=== PATIENT | male | born 1945 | race Caucasian/White ===

== ENCOUNTER → 2018-02-25 | Outpatient (CLI) | payer MEDICARE, OTHER ==
[~2018-02-25] MED LIST: IOHEXOL 240 MG/ML 50ML VIAL. ONE; IOHEXOL 300 MG/ML 75 ML VIAL. IV ONE
[2018-02-25 15:48] LABS: BASO # 0.1 x10^3/uL (0.0-0.2); BASO % 1 % (0-3); EOS # 0.3 x10^3/uL (0.0-0.7); EOS % 3 % (0-3); HEMATOCRIT 44.2 % (39.0-53.0); HEMOGLOBIN 14.3 g/dL (13.0-17.5); LYMPH # 2.8 x10^3/uL (1.0-4.8); LYMPH % 33 % (24-48); MEAN CORPUSCULAR HEMOGLOBIN 25 pg (25-35); MEAN CORPUSCULAR HGB CONC 32 g/dL (31-37); MEAN CORPUSCULAR VOLUME 78 fL (79-100); MONO # 0.6 x10^3/uL (0.0-1.1); MONO % 7 % (0-9); NEUT # 4.8 x10^3uL (1.8-7.7); NEUT % 57 % (31-73); PLATELET COUNT 263 x10^3/uL (140-400); RED BLOOD COUNT 5.68 x10^6/uL (4.30-5.70); RED CELL DISTRIBUTION WIDTH 14.2 % (11.5-14.5); WHITE BLOOD COUNT 8.6 x10^3/uL (4.0-11.0)
[2018-02-25 15:57] LABS: CALCIUM 9.2 mg/dL (8.5-10.1); GFR 73.2; POTASSIUM 3.9 mmol/L (3.5-5.1)
--- NOTE | 2018-02-25 16:51 | RAD ---
Examination: CT of the abdomen pelvis with IV contrast HISTORY: History of obstruction, bloating, pain COMPARISON: 10/28/2012 TECHNIQUE: Axial CT images of the abdomen pelvis performed with IV contrast. Coronal and sagittal reformats are performed. Oral contrast was used Exposure: One or more of the following individualized dose reduction techniques were utilized for this examination: 1. Automated exposure control 2. Adjustment of the mA and/or kV according to patient size 3. Use of iterative reconstruction technique FINDINGS: The visualized bibasilar lungs are clear. No evidence of free air identified in the abdomen. Mild decreased attenuation identified in the liver. The visualized spleen, adrenals grossly appears unremarkable. Cholecystectomy clips identified. The stomach is mildly distended. The visualized pancreas grossly appears unremarkable. The small bowel is nondilated. Feces and gas noted in the colon The bilateral kidneys enhance symmetrically. There is a 1.3 cm cyst identified in the left kidney. The urinary bladder is mildly distended Moderate enlarged prostate gland. The caliber of the aorta grossly appears unremarkable. No evidence of lytic bony destructive lesion. IMPRESSION: 1. No acute intra-abdominal findings. 2. Mild hepatic steatosis. 3. Cholecystectomy changes. 4. No evidence of small bowel obstruction. Electronically signed by: Elmer Barrett MD (02/25/2018 4:47 PM) [id number]
[2018-02-26 14:02] LABS: FREE T4 0.97 ng/dL (0.76-1.46)
[2018-02-26 14:03] LABS: THYROID STIM HORMONE (TSH) 7.865 uIU/mL (0.358-3.740)
[2018-02-27 07:13] LABS: FREE PSA/PSA RATIO 43.3 % (.); PSA FREE 0.39 ng/mL; PSA TOTAL 0.9 ng/mL (0.0-4.0)
== END | disposition home or self-care (01) ==
LOC: CT 15:07
PROVIDERS: ATTEND Nurse Practitioner Family
DX: K76.0 Fatty (change of) liver, not elsewhere classified (principal); E03.9 Hypothyroidism, unspecified; I10 Essential (primary) hypertension; N40.0 Benign prostatic hyperplasia without lower urinary tract symptoms; Z90.49 Acquired absence of other specified parts of digestive tract
CPT/HCPCS: 36415; 74177; 80048; 80061; 82150; 83690; 84153; 84154; 84439; 84443; 85025; Q9966; Q9967

== ENCOUNTER → 2018-04-15 | Day surgery (SDC) | payer MEDICARE, OTHER ==
[~2018-04-15] MED LIST changes: +ALEN70TA5 PO; +AMLO5TAB2 PO; +ASPI81TA50 PO; +ATORVASTATIN CA80 MG PO; +ATROPINE 0.5 MG/5 ML DISP.SYRIN. IV PRN; +BENZ-8 PO; +BUSP10TA PO; +BUSP5TAB PO; +CHOL2000 PO; +DIPH1TAB PO; +ESCITALOPRAM OX10 MG PO; +EZET10TA18 PO; +FAMO-63 PO; -IOHEXOL 240 MG/ML 50ML VIAL. ONE; -IOHEXOL 300 MG/ML 75 ML VIAL. IV ONE; +IV RINGERS SOLUTION,LACTATED 1,000 ML IV SCH; +LEVO175T5 PO; +LEXAPRO10 MG PO; +LIDOCAINE 2% PF Vial for OR 5 ML VIAL. ONE; +MONT10TA9 PO; +NALOXONE 0.4 MG/ML VIAL. IV PRN; +ONDANSETRON PF 4 MG/2 ML VIAL. IV PRN; +PANT40TA3 PO; +PROPOFOL 20 ML IV ONE; +URSO500T8 PO
[2018-04-15 09:28] VITALS: BP 158/86
== END | disposition home or self-care (01) ==
LOC: SURG 07:24
PROVIDERS: ATTEND Internal Medicine Gastroenterology
DX: K44.9 Diaphragmatic hernia without obstruction or gangrene (principal); I10 Essential (primary) hypertension; E03.9 Hypothyroidism, unspecified; N40.0 Benign prostatic hyperplasia without lower urinary tract symptoms; Z88.1 Allergy status to other antibiotic agents; Z88.5 Allergy status to narcotic agent; Z88.8 Allergy status to other drugs, medicaments and biological substances; Z79.82 Long term (current) use of aspirin; Z90.49 Acquired absence of other specified parts of digestive tract; Z79.899 Other long term (current) drug therapy
CPT/HCPCS: 43239; J2704; J7120; J2001

== ENCOUNTER → 2018-04-19 | Outpatient (CLI) | payer MEDICARE, OTHER ==
[2018-04-15 09:28] VITALS: BP 158/86
[~2018-04-19] MED LIST changes: -ATROPINE 0.5 MG/5 ML DISP.SYRIN. IV PRN; -IV RINGERS SOLUTION,LACTATED 1,000 ML IV SCH; -LIDOCAINE 2% PF Vial for OR 5 ML VIAL. ONE; -NALOXONE 0.4 MG/ML VIAL. IV PRN; -ONDANSETRON PF 4 MG/2 ML VIAL. IV PRN; -PROPOFOL 20 ML IV ONE
--- NOTE | 2018-04-19 16:05 | RAD ---
EXAM: Nuclear gastric emptying scan. HISTORY: Pain. Bloating. COMPARISON: None. TECHNIQUE: Serial static images were obtained over the stomach following oral administration of 1.5 mCi of 99m-Tc sulfur colloid in an egg based meal. FINDINGS: The stomach empties into the small bowel without evidence of reflux in the area of the esophagus. There is 40 percent gastric emptying at 60 minutes, 45 percent gastric emptying and 118 minutes, 72 percent gastric emptying at 179 minutes, and 99 percent emptying at 138 minutes. The gastric emptying half-time is greater than 2 hours (normal is 66 +/- 22 minutes). IMPRESSION: Delayed gastric emptying. Electronically signed by: Beatriz Orosco MD (04/19/2018 4:01 PM) [id number]
== END | disposition home or self-care (01) ==
LOC: NM 07:45
PROVIDERS: ATTEND Internal Medicine Gastroenterology
DX: K30 Functional dyspepsia (principal); E03.9 Hypothyroidism, unspecified; I10 Essential (primary) hypertension; Z79.899 Other long term (current) drug therapy
CPT/HCPCS: 78264; A9541

== ENCOUNTER → 2019-08-02 | Day surgery (SDC) | payer MEDICARE, OTHER ==
[~2019-08-02] MED LIST changes: +ACETAMINOPHEN 325 MG TABLET PO PRN; +ALBUTEROL SULFATE 2.5 MG/3 ML NEBU. NEB PRN; -ALEN70TA5 PO; +ALEN70TA6 PO; +AMLO5TAB10 PO; -AMLO5TAB2 PO; +ATROPINE 0.5 MG/5 ML DISP.SYRIN. IV PRN; +DICY10CA3 PO; +ERYT250T14 PO; -EZET10TA18 PO; +EZET10TA20 PO; +FURO-68 PO; +IV RINGERS SOLUTION,LACTATED 1,000 ML IV SCH; +LIDOCAINE 2% PF Vial for OR 5 ML VIAL. ONE; +MIDAZOLAM HCL PF 2 MG/2 ML VIAL. IV PRN; +MONT10TA80 PO; -MONT10TA9 PO; +ONDANSETRON PF 4 MG/2 ML VIAL. IV PRN; +PHENOL ORAL SPRAY 177ML BOTTLE. MM PRN; +POTA20TA4 PO; +PROPOFOL 20 ML IV ONE; -URSO500T8 PO; +URSO500T9 PO; +diphenhydrAMINE 50 MG/ML VIAL IV PRN
[2019-08-02 09:18] VITALS: BP 133/80
== END ==
LOC: SURG 07:04
PROVIDERS: ATTEND Internal Medicine Gastroenterology
DX: R19.4 Change in bowel habit (principal); K63.5 Polyp of colon; K22.2 Esophageal obstruction; K44.9 Diaphragmatic hernia without obstruction or gangrene; K21.9 Gastro-esophageal reflux disease without esophagitis; K52.9 Noninfective gastroenteritis and colitis, unspecified; K64.8 Other hemorrhoids; K31.84 Gastroparesis; F41.9 Anxiety disorder, unspecified; I10 Essential (primary) hypertension; E78.5 Hyperlipidemia, unspecified; Z90.49 Acquired absence of other specified parts of digestive tract; Z88.1 Allergy status to other antibiotic agents; Z88.5 Allergy status to narcotic agent; Z88.8 Allergy status to other drugs, medicaments and biological substances
CPT/HCPCS: 43239; 45380; 45385; J2704; J7120; J2001

== ENCOUNTER → 2019-11-29 | Outpatient (CLI) | payer MEDICARE, OTHER ==
[2019-08-02 09:18] VITALS: BP 133/80
[~2019-11-29] MED LIST changes: -ACETAMINOPHEN 325 MG TABLET PO PRN; -ALBUTEROL SULFATE 2.5 MG/3 ML NEBU. NEB PRN; -ATROPINE 0.5 MG/5 ML DISP.SYRIN. IV PRN; -IV RINGERS SOLUTION,LACTATED 1,000 ML IV SCH; -LIDOCAINE 2% PF Vial for OR 5 ML VIAL. ONE; -MIDAZOLAM HCL PF 2 MG/2 ML VIAL. IV PRN; -ONDANSETRON PF 4 MG/2 ML VIAL. IV PRN; -PHENOL ORAL SPRAY 177ML BOTTLE. MM PRN; -PROPOFOL 20 ML IV ONE; -diphenhydrAMINE 50 MG/ML VIAL IV PRN
--- NOTE | 2019-11-29 10:39 | RAD ---
EXAM: Dual energy x-ray absorptiometry (DEXA). HISTORY: Decreased height. Osteoporosis screening. COMPARISON: None. TECHNIQUE: Dual energy x-ray absorptiometry of the lumbar spine and right hip was performed. Calculation of bone mineral density based on standard deviations above or below the expected young adult normal value (T-score) was completed. FINDINGS: The average bone mineral density in the 1st through 4th lumbar vertebrae is 1.043 g/cmxcm, corresponding with a T-score of -1.5. The average total bone mineral density in the right hip is 0.769 g/cmxcm, corresponding with a T-score of -2.0. IMPRESSION: Osteopenia. Note: Definitions established by the World Health Organization: 1. Normal: T-score is -1.0 or above. 2. Osteopenia: T-score is between -1.0 and -2.5 . 3. Osteoporosis: T-score is -2.5 or below. Electronically signed by: Beatriz Orosco MD (11/29/2019 10:36 AM) [id number]
== END | disposition home or self-care (01) ==
LOC: DXRAD 09:49
PROVIDERS: ATTEND Family Medicine
DX: M85.88 Other specified disorders of bone density and structure, other site (principal)
CPT/HCPCS: 77080

== ENCOUNTER → 2020-12-06 | Outpatient (CLI) | payer MEDICARE, OTHER ==
[2019-08-02 09:18] VITALS: BP 133/80
[~2020-12-06] MED LIST changes: -ALEN70TA6 PO; +ALEN70TA71 PO; +AMLO-186 PO; -AMLO5TAB10 PO
--- NOTE | 2020-12-06 13:59 | RAD ---
EXAM: Abdomen sonogram. HISTORY: Elevated liver enzyme laboratory values. TECHNIQUE: Sonographic imaging of the abdomen was performed. COMPARISON: 02/25/2018. FINDINGS: The liver is normal in size. No focal hepatic lesion is seen. The gallbladder is surgically absent. The common bile duct is normal in caliber. The kidneys are normal in size. There is no hydro nephrosis. There is a suspected 1.8 cm cyst within the lower pole the left kidney. The pancreas is ec hogenic. No focal pancreatic lesion is seen. The spleen is normal in size. The aorta and inferior sravanthi a cava are partially obscured due to bowel gas. IMPRESSION: 1. No acute sonographic finding. 2. Cholecystectomy. 3. 1.8 cm simple appearing left renal cyst. This is stable compared to the prior CT dated 02/25/2018, a llowing for differences in imaging modality. Follow-up is not routinely performed for simple cysts. 4. Echogenic pancreas. No focal pancreatic lesion is seen. Electronically signed by: Beatriz Orosco MD (12/06/2020 1:57 PM) [id number]
== END ==
LOC: US 10:03
PROVIDERS: ATTEND Nurse Practitioner Family
DX: N28.1 Cyst of kidney, acquired (principal); R94.5 Abnormal results of liver function studies; Z90.49 Acquired absence of other specified parts of digestive tract
CPT/HCPCS: 76700